=== PATIENT | male | born 1955 | race Caucasian/White ===

== ENCOUNTER → 2016-07-22 | Outpatient (CLI) | payer OTHER ==
[~2016-07-22] MED LIST: ALBUTEROL17 GM; ASPIRIN81 MG; CLOPIDOGREL75 MG; KCL; LASIX; LIPITOR; ONE DAILY COMP1 EACH; STIOLTO RESPIMAT4 GM; TOPAMAX; TOPROL XL; ZOLOFT
--- NOTE | ~2016-07-22 | CR63 ---
[facility] A Service of [facility] RADIOLOGY TEXT RESULTS PATIENT: TONY SIFUENTES LOCATION: [place] : 53 UNIT #: [id number] AGE: [address]: ERICA DE SANTIAGO APRN SEX: M ORDER DR: [id number] [address] [id number] O MR#: [id number] Acc #: [id number] NAME: TONY SIFUENTES : 1955 SEX: M STUDY DATE/TIME: 07/22/2016 14:52 UNIT: [facility] ROOM: STUDY DESCRIPTION: CR Chest 2 View Attending Physician: Erica De Santiago Aprn Referring Physician: Erica De Santiago Aprn Ordering Physician: Physician Non-Staff Primary Care Physician: Erica De Santiago Aprn MEDICAL IMAGING REPORT This report is preliminary unless electronic signature is present. EXAM PA and lateral views of the chest. COMPARISON None. INDICATION 60-year-old male with chest pain for 1 week. Possible pneumonia. History of a cardiac murmur and aortic valve replacement. FINDINGS No evidence of pneumothorax, pleural effusion or acute airspace disease. Cardiomediastinal silhouette is within normal limits. Median sternotomy wires appear intact. Aortic valve replacement is noted. Bridging lateral syndesmophyte is seen at a single level of the left lower thoracic spine. There is a suspected nodular density in the left lower lobe on the frontal view which does not appear to persist on a second frontal view and is not localized on the lateral view favoring artifact from normal overlapping structures. IMPRESSION 1. No acute radiographic abnormality of the chest. No evidence of pneumonia or pleural effusion. 2. Normal heart size. Prior aortic valve replacement. 3. Single syndesmophyte of the thoracic spine, nonspecific finding. This can be seen in inflammatory bowel disease or ankylosing spondylitis. Dictated by... Prasanna Galicia M.D. [facility] A Service of [facility] RADIOLOGY TEXT RESULTS PATIENT: TONY SIFUENTES LOCATION: [place] : 53 UNIT #: [id number] AGE: [address]: ERICA DE SANTIAGO APRN SEX: M ORDER DR: THIS IS AN ELECTRONICALLY VERIFIED REPORT Prasanna Galicia M.D. at 07/23/2016 12:01 PM [place] TD: 07/23/2016 03:45 JOB #: [id number] MEDICAL IMAGING REPORT Page 1 of 1
[2016-07-22 14:39] LABS: HEMATOCRIT 38.4 % (38.0-50.0); HEMOGLOBIN 13.2 gm/dL (13.0-16.0); MEAN CELL VOLUME 87.6 FL (83-96); MEAN CORPUSCULAR HEMOGLOBIN 30.1 PG (28-34); MEAN CORPUSCULAR HGB CONC 34.4 g/dL (30-36); MEAN PLATELET VOLUME 6.9 FL (6.5-11.5); RED BLOOD COUNT 4.38 X10e (3.90-5.60); RED CELL DISTRIBUTION WIDTH 14.5 % (11.0-15.5); WHITE BLOOD COUNT 5.3 X10e3 (4.0-10.5)
[2016-07-22 15:02] LABS: ALBUMIN SERUM 3.6 g/dL (3.5-5.0); BILIRUBIN,TOTAL 1.1 mg/dL (0.2-2.0); CALCIUM SERUM 10.2 mg/dL (8.4-10.2); CREATININE SERUM 0.6 mg/dL (0.6-1.4); GLOM FILT RATE Estimated 108.6 mL/min (>60); POTASSIUM 3.9 mmol/L (3.5-5.1); PROTEIN TOTAL SERUM 6.8 g/dL (6.0-8.3)
== END | disposition home or self-care (01) ==
LOC: SLAB 14:18
PROVIDERS: Nurse Practitioner Family
DX: R01.1 Cardiac murmur, unspecified (principal); J44.9 Chronic obstructive pulmonary disease, unspecified; I50.9 Heart failure, unspecified; I10 Essential (primary) hypertension; E78.2 Mixed hyperlipidemia; Z68.25 Body mass index [BMI] 25.0-25.9, adult; Z95.2 Presence of prosthetic heart valve
CPT/HCPCS: 36415; 71020; 80053; 83880; 85027

== ENCOUNTER 2016-09-04 17:01 | Emergency (ER) | payer OTHER ==
--- NOTE | ~2016-09-04 | EKG ---
PATIENT: TONY SIFUENTES UNIT #: [id number] Ventricular Rate: 90 BPM Atrial Rate: 90 BPM P-R Interval: 102 ms QRS Duration: 140 ms Q-T Interval: 422 ms QTC Calculation(Bezet): 516 ms P [place]: 36 degrees Calculated R [place]: -29 degrees Calculated T [place]: 42 degrees Diagnosis Line: Sinus rhythm with short MD with Premature Diagnosis Line: supraventricular complexes Diagnosis Line: Right bundle branch block Diagnosis Line: Abnormal ECG Diagnosis Line: No previous ECGs available Diagnosis Line: Confirmed by CHAPITO DE LA VEGA MD ([id number]) on Diagnosis Line: 09/08/2016 9:34:43 PM INTERPRETING MD: YOLETTE HALE
--- NOTE | ~2016-09-04 | CR72 ---
[facility]. [facility] A Service of [facility] & [facility] RADIOLOGY TEXT RESULTS PATIENT: TONY SIFUENTES LOCATION: SED : 53 UNIT #: [id number] AGE: [address]: JUAN F SAHA SEX: M ORDER DR: [id number] [place] [id number] E MR#: [id number] Acc #: [id number] NAME: TONY SIFUENTES : 1955 SEX: M STUDY DATE/TIME: 09/04/2016 18:54 UNIT: SED ROOM: STUDY DESCRIPTION: CR Chest Single View Portable Attending Physician: Juan F Saha Ordering Physician: Zoey Serrato Pa-C Primary Care Physician: Erica De Santiago Aprn MEDICAL IMAGING REPORT This report is preliminary unless electronic signature is present. EXAM Portable chest HISTORY Shortness of air since yesterday. FINDINGS Cardiac size and pulmonary vascularity are normal. No infiltrates or effusions. Sternotomy and CABG marker and cardiac valve prosthesis. IMPRESSION No acute finding. No active disease. Prior cardiac surgery. Dictated by... Jason Hendrix M.D. THIS IS AN ELECTRONICALLY VERIFIED REPORT Jason Hendrix M.D. at 09/04/2016 10:47 PM TRISTA/[place] TD: 09/04/2016 21:22 JOB #: [id number] MEDICAL IMAGING REPORT Page 1 of 1
[2016-09-04] MEDS ORDERED: ZOLOFT (17:06)
[2016-09-04] MEDS ORDERED: ALBUTEROL17 GM (17:06)
[2016-09-04] MEDS ORDERED: ONE DAILY COMP1 EACH (17:06)
[2016-09-04] MEDS ORDERED: TOPAMAX (17:07)
[2016-09-04] MEDS ORDERED: CLOPIDOGREL75 MG (17:07)
[2016-09-04] MEDS ORDERED: STIOLTO RESPIMAT4 GM (17:07)
[2016-09-04] MEDS ORDERED: LASIX (17:07)
[2016-09-04] MEDS ORDERED: LIPITOR (17:07)
[2016-09-04] MEDS ORDERED: TOPROL XL (17:07)
[2016-09-04] MEDS ORDERED: KCL (17:07)
[2016-09-04] MEDS ORDERED: ASPIRIN81 MG (17:07)
[2016-09-04 18:02] LABS: BASOPHIL% 0.3 % (0-2.5); EOSINOPHIL% 0.6 % (0.0-7.0); HEMATOCRIT 32.7 % (38.0-50.0); HEMOGLOBIN 11.5 gm/dL (13.0-16.0); LYMPHOCYTE# 1.3 X10e3 (1.0-3.5); LYMPHOCYTE% 23.5 % (17.0-45.0); MEAN CELL VOLUME 86.4 FL (83-96); MEAN CORPUSCULAR HEMOGLOBIN 30.2 PG (28-34); MONOCYTE# 0.6 X10e3 (0-1.0); MONOCYTE% 11.8 % (3.0-12.0); NEUTROPHIL# 3.4 X10e3 (1.5-7.1); NEUTROPHIL% 63.8 % (40-75); PLATELET COUNT 176 X10e3 (140-420); RED BLOOD COUNT 3.79 X10e (3.90-5.60); RED CELL DISTRIBUTION WIDTH 15.5 % (11.0-15.5); WHITE BLOOD COUNT 5.4 X10e3 (4.0-10.5)
[2016-09-04 18:03] LABS: DIFF IND NO
[2016-09-04 18:12] LABS: POC - CKMB 1.1 ng/mL (0.0-7.9); POC - TROPONIN <0.05 ng/mL (<=0.05)
[2016-09-04 18:18] LABS: ALBUMIN SERUM 3.5 g/dL (3.5-5.0); BILIRUBIN, DIRECT 0.4 mg/dL (0.0-0.2); BILIRUBIN,INDIRECT 0.6 mg/dL (0.0-0.9); CALCIUM SERUM 9.4 mg/dL (8.4-10.2); CREATININE SERUM 0.5 mg/dL (0.6-1.4)
== END 2016-09-04 19:48 | disposition home or self-care (01) ==
LOC: SED 17:01
PROVIDERS: Physician Assistant
DX: J44.1 Chronic obstructive pulmonary disease with (acute) exacerbation (principal); E87.6 Hypokalemia; I25.10 Atherosclerotic heart disease of native coronary artery without angina pectoris; E78.5 Hyperlipidemia, unspecified; I10 Essential (primary) hypertension; F17.210 Nicotine dependence, cigarettes, uncomplicated; Z79.899 Other long term (current) drug therapy
CPT/HCPCS: 71010; 80048; 80076; 82553; 84484; 85025; 93005; 94640; 99284